=== PATIENT | male | born 1945 | race Caucasian/White ===

== ENCOUNTER 2019-02-23 10:46 | Emergency (ER) | payer MEDICARE ==
[~2019-02-23] VITALS: Ht 170.2 cm; Wt 78.0 kg
--- NOTE | 2019-02-23 11:14 | NUR ---
PT REPORTS THAT HE HAS BEEN HAVING "PRETTY BAD" CHEST PAIN SINCE LAST EVENING. HE REPORTS THAT THE PAIN WAS SO BAD THAT IT PREVENTED HIM FROM SLEEPING LAST NIGHT. PT INDICATES LOCATION OF PAIN TO BE APPROX AT HIS LEFT UPPER ABD QUAD (HE TOUCHES THIS LOCATION). VSS. AT BEDSIDE. PT REPORTS THAT THE PAIN "KIND OF RADIATES INTO HIS LEFT SHOULDER. PT DENIES ANY NUMBNESS OR TINGLING.
[2019-02-23] MEDS ORDERED: LEVO137T3 PO (11:23)
[2019-02-23] MEDS ORDERED: KETOROLAC 30 MG/1 ML ONE (11:53)
[2019-02-23] MEDS ORDERED: ASPIRIN 81 MG TABLET CHEW ONE (11:53)
[2019-02-23] MEDS ORDERED: SODIUM CHLORIDE FLUSH 10ML SYR IVF ONE (12:00)
[2019-02-23] MEDS ORDERED: ASPIRIN 81 MG TABLET CHEW PO ONE (12:00)
[2019-02-23] MEDS ORDERED: KETOROLAC 60 MG/2 ML IV ONE (12:00)
--- NOTE | 2019-02-23 12:16 | NUR ---
REPEAT EKG DONE. PT RESTING IN BED, REPORTS A DECREASE IN PAIN. VSS. NO ACUTE SIGNS OF DISTRESS.
[2019-02-23 12:29] LABS: BASOPHILS # (AUTO) 0.02 x10^3/uL (0-0.1); BASOPHILS % (AUTO) 0 % (0-1); EOSINOPHILS # (AUTO) 0.06 x10^3/uL (0-0.4); EOSINOPHILS % (AUTO) 1 % (1-7); LYMPHOCYTES # (AUTO) 0.91 x10^3/uL (1-3.4); LYMPHOCYTES % (AUTO) 11 % (22-44); MD NO; MEAN CORPUSCULAR HEMOGLOBIN 32.4 pg (27.5-34.5); MEAN CORPUSCULAR VOLUME 98.3 fL (81-97); MEAN PLATELET VOLUME 7.4 fL (7.4-10.4); MONOCYTES # (AUTO) 0.72 x10^3/uL (0.2-0.8); MONOCYTES % (AUTO) 9 % (2-9); NEUTROPHILS # (AUTO) 6.37 x10^3/uL (1.8-6.8); NEUTROPHILS % (AUTO) 79 % (42-75); PLATELET COUNT 229 x10^3/uL (130-400); RED BLOOD COUNT 4.28 x10^6/uL (4.38-5.82); RED CELL DISTRIBUTION WIDTH 12.6 % (9.4-14.8)
[2019-02-23 12:35] LABS: ALANINE AMINOTRANSFERASE 25 U/L (12-78); ALBUMIN 3.7 g/dL (3.4-5.0); ANION GAP 4 mmol/L (5-15); CALCIUM 8.5 mg/dL (8.5-10.1); CHLORIDE 109 mmol/L (98-107); CREATININE 1.05 mg/dL (0.7-1.3)
[2019-02-23 12:39] LABS: ALKALINE PHOSPHATASE 76 U/L (45-117); BILIRUBIN,TOTAL 0.6 mg/dL (0.2-1.0); TROPONIN I < 0.015 ng/mL (0.000-0.045)
--- NOTE | 2019-02-23 13:31 | NUR ---
LUNCH RN: F/U CALL PLACED TO CT REGARDING DELAY IN TESTING, TECH STATING ON THE LIST AND WILL BE DONE SOON
[2019-02-23] MEDS ORDERED: OMNIPAQUE 350 MG/ML, 100ML BOTTLE ONE (14:02)
[2019-02-23 14:13] VITALS: BP 120/69
--- NOTE | 2019-02-23 14:14 | NUR ---
PT RESTING, DENIES ANY NEEDS AT THIS TIME. VSS. NO ACUTE SIGNS OF DISTRESS.
--- NOTE | 2019-02-23 14:53 | NUR ---
DISCHARGE INSTRUCTIONS EXPLAINED TO PT. PT VERBALIZED UNDERSTANDING OF INSTRUCTIONS. IV REMOVED WITH TIP INTACT. PT DC'D IN STABLE CONDITION, STEADY ON FEET, NO SIGNS OF DISTRESS.
== END 2019-02-23 14:53 | disposition home or self-care (01) ==
LOC: ED 12:26
DX: J15.9 Unspecified bacterial pneumonia (principal); R07.89 Other chest pain; E03.9 Hypothyroidism, unspecified
CPT/HCPCS: 36415; 71045; 71275; 80053; 84484; 85025; 85379; 93005; 96374; 99284; J1885; Q9967